=== PATIENT | female | born 1970 | race African-American/Black ===

== ENCOUNTER 2022-04-28 08:40 | Emergency (ER) | payer MEDICAID, SELFPAY ==
--- NOTE | ~2022-04-28 | XR_ITS ---
EXAMINATION: XR WRIST, RIGHT CLINICAL INFORMATION: Pain. COMPARISON: None TECHNIQUE: PA, lateral, and oblique views of the right wrist. An indicator arrow points to the ulnar aspect of the wrist. FINDINGS: The bones and soft tissues are normal. No fracture. Alignment is anatomic with normal joint spaces. No erosions or abnormal soft tissue calcifications. XR/XR wrist RT min 3V IMPRESSION: Unremarkable right wrist.
[2022-04-28 09:20] VITALS: BP 128/69; PULSE 79; RESP 18; TEMP 36.6; O2SAT 99; BMI 24.4
--- NOTE | 2022-04-28 09:51 | ED.EXTPRO ---
HPI - Extremity Problem General Chief complaint: Extremity Problem Stated complaint: R Hand Pain No Injury Time Seen by Provider: 04/28/22 09:35 Source: patient Mode of arrival: ambulatory Limitations: no limitations History of Present Illness HPI Narrative: 51 yo left-hand dominant female presents to the ER for evaluation of nontraumatic right hand pain that started yesterday when she was sitting on the couch. She reports she noticed a throbbing pain inside of her hand and palm. The pain radiated to digits 2-5 along with some tingling sensations. She denied any numbness or weakness. She tried tylenol and topical bengay with minimal relief. 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 MD Complaint: extremity pain Onset (ago): day(s) (1) Pain Consistency: constant Location: right and upper extremity Severity scale (1-10): 7 Quality: burning and sharp Radiation: distal Relieving factors: rest Exacerbating factors: range of motion and palpation Associated symptoms: denies other symptoms Related Data Previous Rx's Medication Instructions Recorded naproxen 500 mg tablet 500 mg PO BID #14 tabs 04/28/22 Allergies Allergy/AdvReac Type Severity Reaction Status Date / Time No Known Allergies Allergy Unverified 02/07/20 19:44 [No Known Allergies*] Review of Systems Review of Systems: Constitutional: No Fever, No Chills Cardiovascular: No Chest Pain, No SOB Musculoskeletal: + joint pain, No Myalgias Skin: No Skin Lesions, No rash, No wounds Neuro: No Weakness, No Numbness, +Tingling sensation, No Headache Psych: +anxiety/nervousness Heme/Lymph: No Bruising, No Lymphadenopathy PMFSH Social History Social History Advance Directives: No Advance Directives Information Provided: Yes Physical Exam Vital Signs: Vital Signs: Last Vital Signs Temp 97.9 F 04/28/22 09:20 Pulse 79 04/28/22 09:20 Resp 18 04/28/22 09:20 BP 128/69 04/28/22 09:20 Pulse Ox 99 04/28/22 09:20 O2 Del Method 04/28/22 09:20 BMI result Body Mass Index 24.4 Appearance: Alert. Oriented X3. No acute distress. HEENT: normal inspection CVS: Normal heart rate and rhythm. Pulses normal. Respiratory: No respiratory distress. Skin: Skin warm and dry. Normal skin color. Normal skin turgor. No rashes. Extremities: Normal inspection of the hands bilaterally. Mild tenderness of the palm located below digit 4. Normal range of motion of the wrist, all digits. Normal thumb to finger opposition. Normal adduction and abduction strength. No sensory deficit. Radial pulses 2+. Equal etiquette teacher strength bilaterally. Positive Tinel sign Neuro: Oriented X 3. No motor deficit. No sensory deficit. Course Course Course Narrative: 51-year-old left-hand dominant female presents to the ER for evaluation of right hand pain and paresthesias. X-ray today is normal. There is no trauma. Exam is unremarkable aside from a positive Tinel's. She is neurovascularly intact. Will place in a velcro wrist splint, prescribe NSAIDs and have her follow-up with orthopedic can specialist. Patient agrees with plan. Stable for discharge home. Procedures Orthopedic Splinting/Casting Injury #1: Side: right Upper Extremity Immobilizer: wrist splint Discharge Plan Discharge Clinical Impression: Hand pain, right, Paresthesia Patient Disposition: Home, Self-Care Instructions: Paresthesia (ED), Carpal Tunnel Surgery (DC) Additional Instructions: Your x-ray today was normal. You may have swelling and compression of a nerve in your hand/wrist. Recommend wearing the splint as needed for comfort and support. Wear it at night when you sleep as well. Take the prescribed anti-inflammatory pain medication as needed. Recommend following up with the Orthopedic/Hand specialist for further evaluation and treatment - name and number below. call for an appointment. Prescriptions: New naproxen 500 mg tablet 500 mg PO BID Qty: 14 0RF Referrals: [facility] [Provider Group] Print Language: Hebrew
== END 2022-04-28 10:20 | disposition home or self-care (01) ==
PROVIDERS: Emergency Provider Emergency Medicine Emergency Medical Services; PCP Registered Nurse
DX: M79.641 Pain in right hand (principal); R20.2 Paresthesia of skin
CPT/HCPCS: 73110; 99283; 99284

== ENCOUNTER → 2022-05-26 09:38 | Outpatient (BNVA) | payer MEDICAID, SELFPAY | PROVIDERS: PCP Registered Nurse; Visit Provider Orthopaedic Surgery | DX: R20.2 Paresthesia of skin (principal); R20.0 Anesthesia of skin; M79.641 Pain in right hand | CPT/HCPCS: 99202 ==

== ENCOUNTER 2022-08-12 12:23 | Outpatient (REF) | payer MEDICAID, SELFPAY ==
--- NOTE | 2022-08-12 09:00 | EMG_ITS ---
Right median and ulnar motor and sensory studies were performed. Right radial and sensory study was performed and paraspinal muscles were tested. IMPRESSION: 1. Mild right median neuropathy across carpal tunnel. 2. Mild right ulnar neuropathy across cubital tunnel. MD JOÃO Farooq/SHADE / [id number]
== END 2022-08-12 12:24 | disposition home or self-care (01) ==
LOC: HO.NEURO 12:23
PROVIDERS: PCP Registered Nurse; Visit Provider Orthopaedic Surgery
DX: Z13.89 Encounter for screening for other disorder (principal)